=== PATIENT | female | born 1985 | race African-American/Black ===

== ENCOUNTER 2019-05-04 06:15 | Day surgery (SDC) | payer OTHER ==
[~2019-05-04] VITALS: Ht 167.6 cm; Wt 60.3 kg
[2019-05-04] MEDS ORDERED: KETOROLAC 30 MG/ML VIAL ONE (09:19)
[2019-05-04] MEDS ORDERED: LIDOCAINE 2% 100 MG/5 ML UJET TP ONE (09:19)
== END 2019-05-04 11:05 | disposition home or self-care (01) ==
LOC: MOR 06:15 → MMU 06:15 → MOR 11:05
PROVIDERS: ATTEND Internal Medicine Gastroenterology
DX: K64.8 Other hemorrhoids (principal); R19.7 Diarrhea, unspecified; J45.909 Unspecified asthma, uncomplicated; Z98.890 Other specified postprocedural states; F17.200 Nicotine dependence, unspecified, uncomplicated
CPT/HCPCS: 45378; 81025; J1885